=== PATIENT | female | born 1980 | race African-American/Black ===

== ENCOUNTER 2017-09-17 21:13 | Emergency (ER) | payer OTHER ==
[~2017-09-17 21:13] MED LIST: ALBU18HF2 IH; CLIN300C11 PO
== END 2017-09-17 23:55 | disposition left against medical advice (07) ==
LOC: ER 21:13
DX: H92.09 Otalgia, unspecified ear (principal); Z53.21 Procedure and treatment not carried out due to patient leaving prior to being seen by health care provider